=== PATIENT | male | born 1950 | race Caucasian/White ===

== ENCOUNTER 2019-04-29 07:38 | Emergency (ER) | payer OTHER, MEDICARE ==
[~2019-04-29] VITALS: Ht 177.8 cm; Wt 83.9 kg
[2019-04-29 07:55] VITALS: BP_SYST 115
--- NOTE | 2019-04-29 08:05 | NUR ---
Patient to ER bed 8 to gown for evaluation. Side rails up. Report given to Jackson CORDOBA
--- NOTE | 2019-04-29 08:10 | NUR ---
Patient is awake, alert, and oriented x4. Patient came from home after talking to his PCP. Patient reports bright red blood in stool since Saturday. He denies pain at this time, but had burning pain on Saturday when this started. He reports he has 1 hemorrhoid that he knows of and denies polyps. Patient has no other complaints at this time.
--- NOTE | 2019-04-29 08:25 | NUR ---
ER Dr. Arambula at bedside examining patient.
[2019-04-29] MEDS ORDERED: NACL 0.9% 1,000 ML IV ONE (08:29)
[2019-04-29 09:20] LABS: BASOPHILS % (AUTO) 0.4 % (0.0-2.0); EOSINOPHILS # (AUTO) 0.1 K/uL (0.0-0.4); EOSINOPHILS % (AUTO) 2.2 % (0.0-4.0); HEMATOCRIT 47.5 % (36-54); HEMOGLOBIN 16.2 g/dL (14.0-18.0); LYMPHOCYTES # (AUTO) 0.8 K/uL (1.0-5.5); LYMPHOCYTES % (AUTO) 22.5 % (20.5-51.5); MEAN CORPUSCULAR HEMOGLOBIN 31 pg (27-31); MEAN CORPUSCULAR HGB CONC 34 % (32-36); MEAN CORPUSCULAR VOLUME 90 fL (79.0-98.0); MONOCYTES # (AUTO) 0.4 K/uL (0.0-1.0); NEUTROPHILS # (AUTO) 2.2 K/uL (1.8-7.7); NEUTROPHILS % (AUTO) 63.9 % (40.0-70.0); PLATELET COUNT (AUTO) 159 K/uL (130-430); WHITE BLOOD COUNT (AUTO) 3.4 K/uL (4.8-10.8)
[2019-04-29 09:41] LABS: PROTHROMBIN TIME 10.1 SECS (9.5-12.5)
[2019-04-29 09:45] LABS: CALCIUM 8.6 mg/dL (8.4-11.0); CREATININE 0.89 mg/dL (0.55-1.30); POTASSIUM 3.9 mmol/L (3.5-5.1)
--- NOTE | 2019-04-29 09:55 | NUR ---
Iris hanson in [facility] - 04/29/19 at 0958 by ERICH ANTWAN Arambula at bedside examining patient.
[2019-04-29 09:58] LABS: ALBUMIN 3.6 g/dL (3.4-4.8); TOTAL BILIRUBIN 1.3 mg/dL (0.0-1.0)
[2019-04-29 11:03] VITALS: BP_SYST 124
--- NOTE | 2019-04-29 11:03 | NUR ---
Patient given written and verbal discharge instructions and verbalizes understanding. ER MD discussed with patient the results and treatment provided. Patient in stable condition. ID arm band removed. IV catheter removed intact and dressing applied, no active bleeding. Rx of cipro, flagyl given. Patient educated on pain management and to follow up with PMD. Pain Scale 0/10. Opportunity for questions provided and answered. Medication side effect fact sheet provided.
== END 2019-04-29 11:03 | disposition home or self-care (01) ==
LOC: SED 07:38
DX: K92.1 Melena (principal); R19.7 Diarrhea, unspecified; Z88.5 Allergy status to narcotic agent; Z88.1 Allergy status to other antibiotic agents
CPT/HCPCS: 36415; 80053; 81002; 83605; 85025; 85610; 87040; 96360; 99283; J7030